=== PATIENT | male | born 1940 | race Caucasian/White ===

== ENCOUNTER 2019-10-16 13:51 | Outpatient (CLI) | payer OTHER ==
[~2019-10-16 13:51] MED LIST: DICLOFENAC POTA50 MG PO; TIZANIDINE HCL2 MG PO
[2019-10-18] MEDS ORDERED: ZANAFLEX2 MG PO (13:42)
== END 2019-10-16 14:18 | disposition home or self-care (01) ==
LOC: RAD 13:51
DX: M12.841 Other specific arthropathies, not elsewhere classified, right hand (principal); M12.842 Other specific arthropathies, not elsewhere classified, left hand

== ENCOUNTER 2019-10-18 14:04 | Outpatient (CLI) | payer OTHER ==
[~2019-10-18 14:04] MED LIST changes: +ZANAFLEX2 MG PO
== END 2019-10-18 15:00 | disposition home or self-care (01) ==
LOC: SONOGRAMA 14:04
DX: M12.841 Other specific arthropathies, not elsewhere classified, right hand (principal); M12.842 Other specific arthropathies, not elsewhere classified, left hand

== ENCOUNTER 2021-03-06 10:00 | Outpatient (CLI) | payer OTHER ==
[~2021-03-06 10:00] MED LIST changes: +BACLOFEN10 MG PO; +MELOXICAM15 MG PO
== END 2021-03-06 10:06 | disposition home or self-care (01) ==
LOC: RAD 10:00
PROVIDERS: ATTEND Internal Medicine Cardiovascular Disease
DX: M12.822 Other specific arthropathies, not elsewhere classified, left elbow (principal)

== ENCOUNTER 2021-03-12 14:11 | Outpatient (CLI) | payer OTHER | END 2021-03-12 14:37 | disposition home or self-care (01) | LOC: SONOGRAMA 14:11 → MAMO-SONO 15:15 | PROVIDERS: ATTEND Internal Medicine Cardiovascular Disease | DX: M25.522 Pain in left elbow (principal); M12.822 Other specific arthropathies, not elsewhere classified, left elbow; L03.818 Cellulitis of other sites ==

== ENCOUNTER 2025-04-10 15:23 | Outpatient (CLI) | payer OTHER | END 2025-04-10 15:25 | disposition home or self-care (01) | LOC: NUCLEAR 15:23 | PROVIDERS: ATTEND Internal Medicine Cardiovascular Disease | DX: I87.2 Venous insufficiency (chronic) (peripheral) (principal) ==